=== PATIENT | female | born 1960 | race Caucasian/White ===

== ENCOUNTER → 2021-04-04 14:09 | Outpatient (BNVA) | payer OTHER, SELFPAY | PROVIDERS: PCP Internal Medicine; Visit Provider Nurse Practitioner Family | DX: G30.9 Alzheimer's disease, unspecified (principal); G47.00 Insomnia, unspecified; F02.80 Dementia in other diseases classified elsewhere, unspecified severity, without behavioral disturbance, psychotic disturbance, mood disturbance, and anxiety | CPT/HCPCS: 99212 ==

== ENCOUNTER → 2021-07-04 11:05 | Outpatient (BNVA) | payer OTHER, SELFPAY | PROVIDERS: PCP Internal Medicine; Visit Provider Nurse Practitioner Family | DX: G30.9 Alzheimer's disease, unspecified (principal); G47.00 Insomnia, unspecified; F02.80 Dementia in other diseases classified elsewhere, unspecified severity, without behavioral disturbance, psychotic disturbance, mood disturbance, and anxiety | CPT/HCPCS: 99212 ==

== ENCOUNTER → 2021-12-26 10:00 | Outpatient (BNVA) | payer OTHER, SELFPAY | PROVIDERS: PCP Internal Medicine; Visit Provider Nurse Practitioner Family | DX: G30.9 Alzheimer's disease, unspecified (principal); F02.80 Dementia in other diseases classified elsewhere, unspecified severity, without behavioral disturbance, psychotic disturbance, mood disturbance, and anxiety; R35.0 Frequency of micturition; R39.15 Urgency of urination | CPT/HCPCS: 99212 ==

== ENCOUNTER → 2022-06-28 10:43 | Outpatient (BNVA) | payer OTHER, SELFPAY | PROVIDERS: Visit Provider Nurse Practitioner Family | DX: G30.9 Alzheimer's disease, unspecified (principal); F02.80 Dementia in other diseases classified elsewhere, unspecified severity, without behavioral disturbance, psychotic disturbance, mood disturbance, and anxiety | CPT/HCPCS: 99212 ==

== ENCOUNTER 2022-10-31 10:36 | Outpatient (AMB) | payer OTHER, SELFPAY ==
--- NOTE | 2022-10-31 10:32 | A.OFFVIS_ITS ---
Intake Vital Signs 10/31/22 10:43 Weight 128 lb 2 oz BP 120/80 Blood Pressure Location Rt brachial Position Sitting Pulse 73 Pulse Source Pulse Oximeter Pulse Oximetry (%) 98 Oxygen Delivery Method Room Air Intake Visit Reasons: 4m follow up - Confirmed Intake Note: F/U Alzheimer, accompanied by her health care proxy Dry Pan Feeder Required: Yes Dry Pan Feeder Name: Myrna Allergies aspirin Allergy (Intermediate, Verified 10/31/22 10:33) Unknown Penicillins Allergy (Mild, Verified 10/31/22 10:33) Rash HPI HPI Comments History of Present Illness Details 62-yr-old female presents for f/u visit, accompanied by her dtr-in-law. Pt recently had an ER after family called crisis reporting they needed more help to adress pt's worsening s/s- decreased appetite, some more difficulty chewing meat, weight loss, not wanting to leave the house, refusing to go to her day program, repetitively using the bathroom, urinary incontinence, not sleeping at time, overall needing more assit w/ ADLs/IADLs, as well as speech and gait changes. After the ER eval, pt went to rehab in [place]- however her family asked for discharge as they were not comfortable in that particular facility. Family is hoping to find a more suitable LTC memory care unit for pt. Upon discharge, pt was started on Divalproex 125mg bid and Rispiridone 0.25mg qhs. Dtr-in-law had called us last week, as pt was continuing to have bothersome restlessness, preoccupation with using the bathroom, not lseeping, and not wanting to eat or leave her home. At that time, I did increase the Rispiridone to 0.25mg bid. Pt's dtr-in-law also notes that pt is having more difficulty recalling her youngest son's name. She no longer thinks to check her phone. She prefers to sit and watch TV- but does not know what she is watching. Not able to do her word searches anymore. 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 autosomal dominant?Alzheimer's?disease (AD) [facility] Medical History (Reviewed 10/31/22 @ 10:42 by Afshan Pond [facility]) Precancerous skin lesion Surgical History H/O removal of cyst History of carpal tunnel surgery Family History Mother Diabetes Alzheimer disease HTN (hypertension) Father Diabetes HTN (hypertension) Brother Prostate cancer Brother Prostate cancer HTN (hypertension) Sister HTN (hypertension) Social History Alcohol intake: never Patient Tobacco Use Status: Never used Tobacco Review of Systems Const All systems reviewed & are unremarkable except as noted in HPI and below Physical Exam Vital Signs: Last Vital Signs Pulse 73 10/31/22 10:43 BP 120/80 10/31/22 10:43 Pulse Ox 98 10/31/22 10:43 Oxygen Delivery Method Room Air 10/31/22 10:43 Const General: cooperative and no acute distress Resp Effort & Inspection: normal respiratory effort Neuro Other: Pt is alert to person, can states her dtr-in-law's name. She can name 2/3 of her children. She cannot state the date/year. She states we are in a clinic, but unable to state which town or state we are in (or where she lives). She easily identified 2 items- pen and watch. Her speech is mildy slurred. Her gait is c/wa toe stepping apraxia General: CN's II-XI intact bilaterally Motor exam (neuro): 5/5 motor strength present throughout Psych Appearance: well kempt Assessment & Plan Assessment & Plan (1) Alzheimer disease: Comment: Abnormal PET CT- c/w Alzheimer's dementia. Neuropsych testing c/w major neurocognitive disorder with behavioral disturbance. 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 (AD) Code(s): G30.9 - Alzheimer's disease, unspecified; F02.80 - Dementia in other diseases classified elsewhere, unspecified severity, without behavioral disturbance, psychotic disturbance, mood disturbance, and anxiety (2) Insomnia: Code(s): G47.00 - Insomnia, unspecified (3) Urinary frequency: Code(s): R35.0 - Frequency of micturition Plan Concur w/ LTC memory support placement- as there is a high level of caregiver burden, which will only increase with time. Paperwork for [facility] completed. In the meantime, continue supportive care. Continue divalproex 125mg bid. Continue Rispiridone 0.25mg bid. Note- per genetics consult- pt may be more susceptible to neuroleptic s/s. Continue Namenda XR 28 mg daily, melatonin, clonazepam as needed, and trazodone 50 mg q.h.s. Dtr-in-law to provide status update next week- consider med adjustment at that time. Plan for in-person f/u visit in 3 months. Coding Level of Care Code Est Pt Level 4 (44102) Diagnoses Alzheimer disease G30.9; F02.80 Insomnia G47.00 Urinary frequency R35.0
[2022-10-31 10:43] VITALS: BP 120/80; PULSE 73; O2SAT 98
== END 2022-10-31 11:49 | disposition home or self-care (01) ==
PROVIDERS: Visit Provider Nurse Practitioner Family
DX: G30.9 Alzheimer's disease, unspecified (principal); F02.80 Dementia in other diseases classified elsewhere, unspecified severity, without behavioral disturbance, psychotic disturbance, mood disturbance, and anxiety; G47.00 Insomnia, unspecified; R35.0 Frequency of micturition
CPT/HCPCS: 99214

== ENCOUNTER → 2022-10-31 10:36 | Outpatient (BNVA) | payer OTHER, SELFPAY | PROVIDERS: Visit Provider Nurse Practitioner Family | DX: G30.9 Alzheimer's disease, unspecified (principal); F02.80 Dementia in other diseases classified elsewhere, unspecified severity, without behavioral disturbance, psychotic disturbance, mood disturbance, and anxiety; G47.00 Insomnia, unspecified; R35.0 Frequency of micturition; Z79.899 Other long term (current) drug therapy | CPT/HCPCS: 99212 ==

== ENCOUNTER 2023-02-19 09:44 | Outpatient (AMB) | payer OTHER, SELFPAY ==
--- NOTE | 2023-02-19 09:52 | MHC.OFFVIS ---
Intake Vital Signs 02/19/23 09:55 Height 5 ft Weight 126 lb 6 oz BMI 24.7 BP 110/74 Blood Pressure Location Rt brachial Position Sitting Pulse 88 Pulse Source Pulse Oximeter Pulse Oximetry (%) 97 Oxygen Delivery Method Room Air Intake Visit Reasons: 3m follow up-Confirmed Intake Note: Patient presents for 3 month follow up. sleep not good at night wakes up at night has her days on and off with episodes. Allergies aspirin Allergy (Intermediate, Verified 02/19/23 09:57) Unknown Penicillins Allergy (Mild, Verified 02/19/23 09:57) Rash Medication List - Last Reconciled 02/19/23 by SKYE Mckeon calcium carbonate-vitamin D3 500 mg-10 mcg (400 unit) (Calcium 500 With D) 1 tab PO DAILY 30 days clonazepam 0.5 mg PO BID PRN 30 days divalproex 125 mg PO BID 30 days donepezil 10 mg PO BEDTIME 30 days ketoconazole 2% 1 appl topical weekly; mecobalamin (vitamin B12) mcg IM .[id number] melatonin 3 - 6 mg (1 - 2 x 3 mg) PO BEDTIME PRN 30 days memantine (Namenda XR) 28 mg PO DAILY 30 days mirabegron ER (Myrbetriq) 25 mg PO BEDTIME risperidone 1 tab qam and 2 tabs qhs orally .; 30 days trazodone 50 mg PO BEDTIME 30 days HPI HPI Comments History of Present Illness Details 62-yr-old female presents for f/u visit. Pt denies any significant interval medical changes. Pt has not been having behaviors- no outbursts She has had some weight loss- does eat, but slower, sometimes smaller portions, sometimes throws her food out at the day program. She is using a pull-up at night. Is continent during the day. Family notes she has had some difficulties following the daylight savings time change- now thinking she needs to get ready for bed at 4pm when it gets dark. In general, has more difficulty adjusting to changes in her routine. No falls. When she stands up from sitting, it seems like she gets stuck. Can stumble into a door frame, especially during turns. Her left hand tremors at times- at rest. She can do exercises at her day program- but she can decline. No skin breakdown. Can sometimes can scratch/itch. She is not sleeping well at night- once she wakes up to void, she is up most of the night. [facility] Medical History Precancerous skin lesion Surgical History H/O removal of cyst History of carpal tunnel surgery Family History Mother Diabetes Alzheimer disease HTN (hypertension) Father Diabetes HTN (hypertension) Brother Prostate cancer Brother Prostate cancer HTN (hypertension) Sister HTN (hypertension) Social History Alcohol intake: never Patient Tobacco Use Status: Never used Tobacco Review of Systems Const All systems reviewed & are unremarkable except as noted in HPI and below Physical Exam Vital Signs: Last Vital Signs Pulse 88 02/19/23 09:55 BP 110/74 02/19/23 09:55 Pulse Ox 97 02/19/23 09:55 Oxygen Delivery Method Room Air 02/19/23 09:55 BMI result Body Mass Index 24.7 Const General: cooperative and no acute distress Resp Effort & Inspection: normal respiratory effort and able to speak in complete sentences Neuro Other: Pt is alert to person= can states her dtr-in-law's name. She cannot state the date/year. She states we are in a clinic, but unable to state which town or state we are in. Mild decreased expression Mild oral buccal involuntary movements. Soft speech No trmeor Mild BUE tone FFM- mild bradykinesia Foot taps- ok Slow to stand, no RUE arm swing, short steps, steadier today. Psych Appearance: grossly normal Affect: normal affect Attitude: cooperative Assessment & Plan Assessment & Plan (1) Alzheimer disease: Comment: Abnormal PET CT- c/w Alzheimer's dementia. Neuropsych testing c/w major neurocognitive disorder with behavioral disturbance. 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 (AD) Code(s): G30.9 - Alzheimer's disease, unspecified; F02.80 - Dementia in other diseases classified elsewhere, unspecified severity, without behavioral disturbance, psychotic disturbance, mood disturbance, and anxiety (2) Gait difficulty: Code(s): R26.9 - Unspecified abnormalities of gait and mobility (3) Neuroleptic induced parkinsonism: Comment: mild, however is affecting eating and standing/gait Code(s): G21.11 - Neuroleptic induced parkinsonism; T43.505A - Adverse effect of unspecified antipsychotics and neuroleptics, initial encounter Plan Concur w/ LTC memory support placement- they are waiting for an opening. In the meantime, continue supportive care. Trial CD-LD 25-100mg 1/2-1 tab bid- in hopes this helps slowness and freezing episodes- especially when eating and standing to walk. Continue divalproex 125mg bid. Continue Rispiridone 0.25mg bid. Note- per genetics consult- pt may be more susceptible to neuroleptic s/s. Continue Namenda XR 28 mg daily, melatonin, clonazepam as needed. Increase trazodone from 50 mg qhs to 75mg qhs- for sleep. Suggested to add a SAD lamp which may help w/ day/night differentiation. [facility] handicap paperwork completed. Plan for in-person f/u visit in 3-4 months. Medications: New carbidopa-levodopa 25-100 mg take w/ a cracker 30 minutes before breakfast and dinner, 0.5 - 1 tabs PO BID 30 days 60 tabs 3RF Changed From trazodone 50 mg PO BEDTIME 30 days 30 tabs 6RF To trazodone 75 mg (1.5 x 50 mg) PO BEDTIME 30 days 45 tabs 6RF Coding Level of Care Code Est Pt Level 4 (62292) Diagnoses Alzheimer disease G30.9; F02.80 Gait difficulty R26.9 Neuroleptic induced parkinsonism G21.11; T43.505A
[2023-02-19 09:55] VITALS: BP 110/74; PULSE 88; O2SAT 97; BMI 24.7
== END 2023-02-19 10:47 | disposition home or self-care (01) ==
PROVIDERS: Visit Provider Nurse Practitioner Family
DX: G30.9 Alzheimer's disease, unspecified (principal); F02.80 Dementia in other diseases classified elsewhere, unspecified severity, without behavioral disturbance, psychotic disturbance, mood disturbance, and anxiety; R26.9 Unspecified abnormalities of gait and mobility; G21.11 Neuroleptic induced parkinsonism; T43.505A Adverse effect of unspecified antipsychotics and neuroleptics, initial encounter
CPT/HCPCS: 99214

== ENCOUNTER → 2023-02-19 09:44 | Outpatient (BNVA) | payer OTHER, SELFPAY | PROVIDERS: Visit Provider Nurse Practitioner Family | DX: G30.9 Alzheimer's disease, unspecified (principal); F02.80 Dementia in other diseases classified elsewhere, unspecified severity, without behavioral disturbance, psychotic disturbance, mood disturbance, and anxiety; R26.9 Unspecified abnormalities of gait and mobility; G21.11 Neuroleptic induced parkinsonism; T43.505A Adverse effect of unspecified antipsychotics and neuroleptics, initial encounter | CPT/HCPCS: 99212 ==

== ENCOUNTER 2023-06-26 10:16 | Outpatient (AMB) | payer OTHER, SELFPAY ==
[2023-06-26 10:24] VITALS: BP 120/78; PULSE 75; O2SAT 97; BMI 23.7
--- NOTE | 2023-06-26 10:24 | MHC.OFFVIS ---
Intake Vital Signs 06/26/23 10:24 Height 5 ft Weight 121 lb 4 oz BMI 23.7 BP 120/78 Blood Pressure Location Rt brachial Position Sitting Pulse 75 Pulse Source Pulse Oximeter Pulse Oximetry (%) 97 Oxygen Delivery Method Room Air Intake Visit Reasons: 4 mo f/u - CONF w/ address w/ daughter Intake Note: Patient presents for 4 month follow up. foster care social worker at [facility] stated paperwork for placement was faxed for provider to sign Allergies aspirin Allergy (Intermediate, Verified 06/26/23 10:28) Unknown Penicillins Allergy (Mild, Verified 06/26/23 10:28) Rash Medication List - Last Reconciled 06/26/23 by SKYE Mckeon calcium carbonate-vitamin D3 500 mg-10 mcg (400 unit) (Calcium 500 With D) 1 tab PO DAILY 30 days carbidopa-levodopa 25-100 mg 0.5 - 1 tabs PO BID 30 days clonazepam 0.5 mg PO BID PRN 30 days divalproex 125 mg PO BID 30 days donepezil 10 mg PO BEDTIME 30 days ketoconazole 2% 1 appl topical weekly; mecobalamin (vitamin B12) mcg IM .[id number] melatonin 3 - 6 mg (1 - 2 x 3 mg) PO BEDTIME PRN 30 days memantine (Namenda XR) 28 mg PO DAILY 30 days mirabegron ER (Myrbetriq) 25 mg PO BEDTIME risperidone 1 tab qam and 2 tabs qhs orally .; 30 days trazodone 75 mg (1.5 x 50 mg) PO BEDTIME 30 days HPI HPI Comments History of Present Illness Details 63-yr-old female presents for f/u visit. Pt denies any significant interval medical changes. Pt continues to be on wait list for a memory care placement. She is still frequently using the bathroom- during the day every 20 minutes even at her day program, as many as 20 times per night. Often, not voiding at all. She is f/b urology- on Myrbetriq and cream- which is not helping. If she does not have access to the bathroom, she will try to void on her soiled clothes (pulls down her pants/pull-ups and places the soiled clothes between her legs and tries to void). She is using a pull-up. She had a recent stumble on the stairs- when she was trying to sneak up the stairs to go to the bathroom. She has had a few outbursts- usually related to her wanting to repeatedly going to the bathroom. She is eating slower, sometimes smaller portions, sometimes throws her food out at the day program. Family tries to minimize distractions, but pt will not eat in the kitchen, prone to focus on the bathroom door. Family states that using the bathroom, and her routine is her primary point of conversation. She needs cuing for ADLs, especially on the weekend when she does not have her day program routine. Has difficulty adjusting to changes in her routine. She is often mumbling. Sometimes, her speech is clearer when talking to friends on the phone. She has difficulty changing form one task to another. When she stands up from sitting, it seems like she gets stuck. Her left hand tremors at times- at rest. She may do Bingo at her day program. She can do exercises at her day program- but she declines. No skin breakdown. She is not sleeping well at night- again once she wakes up to void, she is up most of the night. [facility] Medical History Precancerous skin lesion Surgical History H/O removal of cyst History of carpal tunnel surgery Family History Mother Diabetes Alzheimer disease HTN (hypertension) Father Diabetes HTN (hypertension) Brother Prostate cancer Brother Prostate cancer HTN (hypertension) Sister HTN (hypertension) Social History Alcohol intake: never Patient Tobacco Use Status: Never used Tobacco Review of Systems Const All systems reviewed & are unremarkable except as noted in HPI and below Physical Exam Vital Signs: Last Vital Signs Pulse 75 06/26/23 10:24 BP 120/78 06/26/23 10:24 Pulse Ox 97 06/26/23 10:24 Oxygen Delivery Method Room Air 06/26/23 10:24 BMI result Body Mass Index 23.7 Const General: cooperative and no acute distress HEENT Head: Yes normocephalic Resp Effort & Inspection: normal respiratory effort and able to speak in complete sentences Neuro Other: Alert, responds to simple statements, provides simple responses, STM lapses. Mild decreased expression Mild oral buccal involuntary movements. Soft speech Mild LUE tremor. Mild BUE tone FFM- mild bradykinesia Foot taps- decreased fluidity. Slow to stand, no RUE arm swing, short steps, steadier today. General: gait normal and CN's II-XI intact bilaterally Motor exam (neuro): 5/5 motor strength present throughout Psych Appearance: grossly normal Speech and movement: Normal speech and movement present Affect: normal affect Attitude: cooperative Thought process: Normal thought process present Thought content: Normal thought content present Assessment & Plan Assessment & Plan (1) Alzheimer disease: Comment: Abnormal PET CT- c/w Alzheimer's dementia. Neuropsych testing c/w major neurocognitive disorder with behavioral disturbance. 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 (AD) Code(s): G30.9 - Alzheimer's disease, unspecified; F02.80 - Dementia in other diseases classified elsewhere, unspecified severity, without behavioral disturbance, psychotic disturbance, mood disturbance, and anxiety (2) Neuroleptic induced parkinsonism: Comment: mild, however is affecting eating and standing/gait Code(s): G21.11 - Neuroleptic induced parkinsonism; T43.505A - Adverse effect of unspecified antipsychotics and neuroleptics, initial encounter (3) Gait difficulty: Code(s): R26.9 - Unspecified abnormalities of gait and mobility Plan Concur w/ LTC memory support placement- they are waiting for an opening. In the meantime, continue supportive care. Trial urinary supplement- to see if this helps bathroom behaviors. Increase CD-LD 25-100mg from 1/2 tab bid to 1 tab bid- in hopes this helps slowness and freezing episodes- especially when eating and standing to walk. Trial Quetiapine 25mg qhs. Continue divalproex 125mg bid. Continue Rispiridone 0.25mg qam, and adjust 2 tabs qHS hall to 2 tabs q 3pm.. Note- per genetics consult- pt may be more susceptible to neuroleptic s/s. Continue Namenda XR 28 mg daily, melatonin, clonazepam as needed. Wean off trazodone. Plan for in-person f/u visit in 6 months. Medications: New quetiapine 25 mg PO BEDTIME 30 days 30 tabs 5RF Changed From risperidone 1 tab qam and 2 tabs qhs orally .; 30 days 90 tabs 6RF To risperidone 1 tab qam and 2 tabs q3pm orally .; 30 days 90 tabs 6RF From carbidopa-levodopa 25-100 mg take w/ a cracker 30 minutes before breakfast and dinner, 0.5 - 1 tabs PO BID 30 days 60 tabs 6RF To carbidopa-levodopa 25-100 mg take w/ a cracker 30 minutes before breakfast and dinner, 1 tab PO BID 30 days 60 tabs 6RF From trazodone 75 mg (1.5 x 50 mg) PO BEDTIME 30 days 45 tabs 6RF To trazodone 1 tab qhs x's 1 week, then 1/2 tab qhs x's 1 week, then stop orally bedtime; 14 days 14 tabs 0RF Coding Level of Care Code Est Pt Level 4 (76482) Diagnoses Alzheimer disease G30.9; F02.80 Neuroleptic induced parkinsonism G21.11; T43.505A Gait difficulty R26.9
== END 2023-06-26 11:32 | disposition home or self-care (01) ==
PROVIDERS: Visit Provider Nurse Practitioner Family
DX: G30.9 Alzheimer's disease, unspecified (principal); F02.80 Dementia in other diseases classified elsewhere, unspecified severity, without behavioral disturbance, psychotic disturbance, mood disturbance, and anxiety; G21.11 Neuroleptic induced parkinsonism; T43.505A Adverse effect of unspecified antipsychotics and neuroleptics, initial encounter; R26.9 Unspecified abnormalities of gait and mobility
CPT/HCPCS: 99214

== ENCOUNTER → 2023-06-26 10:16 | Outpatient (BNVA) | payer OTHER, SELFPAY | PROVIDERS: Visit Provider Nurse Practitioner Family | DX: G30.9 Alzheimer's disease, unspecified (principal); G21.11 Neuroleptic induced parkinsonism; F02.80 Dementia in other diseases classified elsewhere, unspecified severity, without behavioral disturbance, psychotic disturbance, mood disturbance, and anxiety; T43.505A Adverse effect of unspecified antipsychotics and neuroleptics, initial encounter; R26.9 Unspecified abnormalities of gait and mobility | CPT/HCPCS: 99212 ==

== ENCOUNTER 2023-11-13 08:59 | Outpatient (AMB) | payer OTHER, SELFPAY ==
--- NOTE | 2023-11-13 08:59 | MHC.OFFVIS ---
Intake Visit Reasons: Follow up Intake Note: patient presents for follow up Allergies aspirin Allergy (Intermediate, Verified 11/13/23 08:59) Unknown Penicillins Allergy (Mild, Verified 11/13/23 08:59) Rash Medication List - Last Reconciled 11/13/23 by SKYE Mckeon calcium carbonate-vitamin D3 500 mg-10 mcg (400 unit) (Calcium 500 With D) 1 tab PO DAILY 30 days carbidopa-levodopa 25-100 mg 1 tab PO TID 30 days clonazepam 0.5 mg PO BID PRN 30 days divalproex 125 mg PO BID 30 days donepezil 10 mg PO BEDTIME 30 days ketoconazole 2% 1 appl topical weekly; mecobalamin (vitamin B12) mcg IM .[id number] melatonin 3 - 6 mg (1 - 2 x 3 mg) PO BEDTIME PRN 30 days memantine (Namenda XR) 28 mg PO DAILY 30 days mirabegron ER (Myrbetriq) 25 mg PO BEDTIME quetiapine 50 mg PO BEDTIME 30 days risperidone 1 tab qam and 2 tabs q3pm orally .; 30 days trazodone 1 tab qhs x's 1 week, then 1/2 tab qhs x's 1 week, then stop orally bedtime; 14 days HPI Comments Details: 63-yr-old female presents for f/u televideo visit via [employer], accompanied by her dtr-in-law. Pt denies any significant interval medical changes. Pt is waiting for LTC placement. She needs cuing for ADLs, especially on the weekend when she does not have her day program routine. She has to be reminded to not use the same handkerchief she uses for her nose to to clean her eyes/mouth. Has difficulty adjusting to changes in her routine. She has difficulty changing form one task to another. Denies recent verbal outbursts, but can be frustrated by wanting to jessica the bathroom. She is eating a bit better, family just serves her and makes sure the dog is not around- otherwise pt will feed the dog instead of eating. Her speech is softer, more mumbled w/wo her dentures. When she stands up from sitting, it seems like she gets stuck. CD-LD did help, but effect has waned some. Left rest hand tremor is stable- noticed more if anxious. She is still prone to wanting to void frequently at home. Denies falls, dizziness, lightheadedness. Denies skin breakdown. She is still frequently using the bathroom- every 25-30 minutes, but more frequently if allowed. Now only occasionally voiding in her dirty clothes. Pt may put her hands in her pants to check that she does have a liner on. Often, not voiding at all. Uses pull-ups. She is f/b urology. PCP ran a UA last week- negative. She continues to go to the day program- she is still going to the bathroom frequently there, so it is hard for her to do other activities. She is not sleeping well at night- again once she wakes up to void- around 2:45-3am, she is up and down for the rest of the night. Pt wants to go to bed around 8:30-9pm. Pt refuses to take daytime naps. She can look very tired. [facility] Medical History Precancerous skin lesion Surgical History H/O removal of cyst History of carpal tunnel surgery Family History Mother Diabetes Alzheimer disease HTN (hypertension) Father Diabetes HTN (hypertension) Brother Prostate cancer Brother Prostate cancer HTN (hypertension) Sister HTN (hypertension) Social History Alcohol intake: never Patient Tobacco Use Status: Never used Tobacco Physical Exam Const General: cooperative and no acute distress Resp Effort & Inspection: normal respiratory effort and able to speak in complete sentences Neuro Other: Alert, responds to simple statements, provides simple responses, STM lapses. Mild decreased expression Mild oral buccal involuntary movements. Soft speech Mild LUE tremor. Psych Appearance: grossly normal Affect: normal affect Attitude: cooperative Telehealth Telehealth Telehealth Platform: [facility] Location of provider rendering services: practice address Location of patient: address on file Patient Identification confirmed using: Name, : Yes Telehealth method: video Patient verbally consented to treatment: Yes Patient verbally consented to billing insurance company: Yes Patient informed of any privacy concerns related to visit: Yes Minutes spent on Phone/Video with Pt.: 30 Assessment & Plan Assessment & Plan (1) Alzheimer disease: Comment: Abnormal PET CT- c/w Alzheimer's dementia. Neuropsych testing c/w major neurocognitive disorder with behavioral disturbance. 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 In the meantime, continue supportive care. Tried urinary supplement- stopped as it did not reduce bathroom behaviors. Increase CD-LD 25-100mg from 1 tab bid ti 1 tab tid.- in hopes this helps slowness and freezing episodes- especially when eating and standing to walk. Increase Quetiapine from 25mg qhs to 50mg qhs. Continue Rispiridone 0.25mg qam, and 2 tabs q 3pm. Initially prescribed by psychiatry for mood d/o. Note- per genetics consult- pt may be more susceptible to neuroleptic s/s. Continue divalproex 125mg bid. Continue Namenda XR 28 mg daily Continue melatonin, clonazepam as needed. Trazodone- stopped. f/u visit in 6 months. Medications: New quetiapine 50 mg PO BEDTIME 30 days 90 tabs 6RF Changed From carbidopa-levodopa 25-100 mg take w/ a cracker 30 minutes before breakfast and dinner, 1 tab PO BID 30 days 60 tabs 6RF To carbidopa-levodopa 25-100 mg take w/ a cracker 1 tab PO TID 30 days 90 tabs 6RF Discontinued quetiapine Discontinued Reason: Doctor's Order 25 mg PO BEDTIME 30 days 30 tabs 5RF Coding Level of Care Code Tele Est Pt Level 4 (40189) Complex EM visit Add On G2211 Diagnoses Alzheimer disease G30.9; F02.80 Neuroleptic induced parkinsonism G21.11; T43.505A Urinary frequency R35.0
== END 2023-11-13 10:01 | disposition home or self-care (01) ==
LOC: HO.HSMS 08:59
PROVIDERS: Visit Provider Nurse Practitioner Family
DX: G30.0 Alzheimer's disease with early onset (principal); F02.818 Dementia in other diseases classified elsewhere, unspecified severity, with other behavioral disturbance; G21.11 Neuroleptic induced parkinsonism; T43.505A Adverse effect of unspecified antipsychotics and neuroleptics, initial encounter; R35.0 Frequency of micturition
CPT/HCPCS: 99214; G2211

== ENCOUNTER → 2023-11-13 08:59 | Outpatient (BNVA) | payer OTHER, SELFPAY | PROVIDERS: Visit Provider Nurse Practitioner Family ==

== ENCOUNTER 2025-02-20 11:43 | Outpatient (AMB) | payer OTHER, SELFPAY ==
[2025-02-20 12:24] VITALS: BP 120/80; PULSE 72; O2SAT 94
--- NOTE | 2025-02-20 12:24 | A.OFFVIS_ITS ---
Vital Signs 02/20/25 12:24 Weight 180 lb BP 120/80 Blood Pressure Location Rt brachial Position Sitting Pulse 72 Pulse Source Pulse Oximeter Pulse Oximetry (%) 94 Oxygen Delivery Method Room Air Intake Visit Reasons: medication F/U per [facility]. Intake Note: patient presents for follow up Director Of Outpatient Services Required: No Allergies aspirin Allergy (Intermediate, Verified 02/20/25 12:27) Unknown Penicillins Allergy (Mild, Verified 02/20/25 12:27) Rash Medication List - Last Reconciled 02/20/25 by SKYE Mckeon calcium carbonate-vitamin D3 500 mg-10 mcg (400 unit) (Calcium 500 With D) 1 tab PO DAILY 30 days carbidopa-levodopa 25-100 mg 1 tab PO TID 30 days clonazepam 0.5 mg PO BID PRN 30 days divalproex 125 mg PO BID 30 days donepezil 10 mg PO BEDTIME 30 days ketoconazole 2% 1 appl topical weekly; lemborexant (Dayvigo) 5 mg PO BEDTIME 30 days mecobalamin (vitamin B12) mcg IM .[id number] melatonin 3 - 6 mg (1 - 2 x 3 mg) PO BEDTIME PRN 30 days memantine 28 mg PO DAILY 30 days mirabegron ER (Myrbetriq) 25 mg PO BEDTIME quetiapine 50 mg PO BEDTIME 30 days risperidone 1 tab qam and 2 tabs q3pm orally .; 30 days HPI Comments Details: 64-yr-old female presents for f/u , accompanied by her dtr-in-law. She was recently diagnosed with H pylori breath test, through her PCP, in his to start a 2 week course of metronidazole, clarithromycin, and omeprazole. While on this H pylori treatment, she needs to hold the donepezil, risperidone, and quetiapine. Family is still using clonazepam as needed, sparingly. It does not cause sig nificant sedation on zone. Pt is waiting for LTC placement- however they have not been able to find a suitable place with bed availability She needs cuing for ADLs.. She has to be reminded to not use the same handkerchief she uses for her nose to to clean her eyes/mouth. Family reports her cognition continues to decline Continues to have difficulty adjusting to changes in her routine. She has difficulty changing form one task to another. She is eating overall better, and has had a significant weight gain Her speech is softer, more mumbled w/wo her dentures. Left rest hand tremor is stable Denies falls, dizziness, lightheadedness. Denies skin breakdown. She can be prone to right eye styes- family believes this is due to her using the same clock to wipe her mouth as she uses to a per eyes She continues to have repetitive bathroom use behaviors, however family does offered to bring her to the bathroom every 30-45 minutes-which seems to help. She has been sleeping better at night She continues to go to the day program- she is still going to the bathroom frequently there, so it is hard for her to do other activities. [facility] Medical History Precancerous skin lesion Surgical History H/O removal of cyst History of carpal tunnel surgery Family History Mother Diabetes Alzheimer disease HTN (hypertension) Father Diabetes HTN (hypertension) Brother Prostate cancer Brother Prostate cancer HTN (hypertension) Sister HTN (hypertension) Social History Alcohol intake: never Patient Tobacco Use Status: Never used Tobacco Physical Exam Vital Signs: Last Vital Signs Pulse 72 02/20/25 12:24 BP 120/80 02/20/25 12:24 Pulse Ox 94 02/20/25 12:24 Oxygen Delivery Method Room Air 02/20/25 12:24 Const General: cooperative and no acute distress Resp Effort & Inspection: normal respiratory effort and able to speak in complete sentences Neuro Other: Alert, responds to simple statements, provides simple responses, STM lapses. Mild decreased expression No visible oral buccal involuntary movements. Soft speech No visible LUE tremor. FFM decreased, more so on left Foot taps mildly decreased Slow to stand, steady gait Psych Appearance: grossly normal Affect: normal affect Attitude: cooperative Assessment & Plan Assessment & Plan (1) Alzheimer disease: Comment: Abnormal PET CT- c/w Alzheimer's dementia. Neuropsych testing c/w major neurocognitive disorder with behavioral disturbance. 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 In the meantime, continue supportive care. Previously tried urinary supplement- stopped as it did not reduce bathroom behaviors. Continue CD-LD 25-100mg from 1 tab bid ti 1 tab tid.- in hopes this helps slowness and freezing episodes- especially when eating and standing to walk. While H pylori treatment including omeprazole, metronidazole, clarithromycin: * Hold risperidone, donepezil and quetiapine. * Increase clonazepam to 1 tab q.a.m., 1 tab daily at 15:00, and 2 tabs at bedtime. May use extra 1/2-1 tabs as needed, max of 2 extra tabs per day. Upon completion of the H pylori treatment, resume: * Quetiapine from 25mg qhs to 50mg qhs. * Rispiridone 0.25mg qam, and 2 tabs q 3pm. Initially prescribed by psychiatry for mood d/o. Note- per genetics consult- pt may be more susceptible to neuroleptic s/s. * Donepezil 10 mg daily at bedtime The following treatment will not need to be adjusted while on H pylori treatment: * Continue divalproex 125mg bid. * Continue Namenda XR 28 mg daily * Continue melatonin, clonazepam as needed. Trazodone- stopped. f/u visit in 6 months. Medications: New metronidazole x's 14 days for H. Pylori infection 500 mg PO BID omeprazole x's 14 days for H. Pylori infection 20 mg PO BID clarithromycin 500 mg PO BID Coding Level of Care Code Est Pt Level 4 (13998) Diagnoses Alzheimer disease G30.9; F02.80 Neuroleptic induced parkinsonism G21.11; T43.505A Urinary frequency R35.0
== END 2025-02-20 13:16 | disposition home or self-care (01) ==
LOC: HO.HSMS 11:43
PROVIDERS: Visit Provider Nurse Practitioner Family
DX: G30.9 Alzheimer's disease, unspecified (principal); F02.80 Dementia in other diseases classified elsewhere, unspecified severity, without behavioral disturbance, psychotic disturbance, mood disturbance, and anxiety; G21.11 Neuroleptic induced parkinsonism; T43.505A Adverse effect of unspecified antipsychotics and neuroleptics, initial encounter; R35.0 Frequency of micturition
CPT/HCPCS: 99214

== ENCOUNTER → 2025-02-20 11:43 | Outpatient (BNVA) | payer OTHER, SELFPAY | PROVIDERS: Visit Provider Nurse Practitioner Family | DX: G30.9 Alzheimer's disease, unspecified (principal); F02.80 Dementia in other diseases classified elsewhere, unspecified severity, without behavioral disturbance, psychotic disturbance, mood disturbance, and anxiety; G21.11 Neuroleptic induced parkinsonism; T43.505A Adverse effect of unspecified antipsychotics and neuroleptics, initial encounter; R35.0 Frequency of micturition; Z79.899 Other long term (current) drug therapy | CPT/HCPCS: 99212 ==